=== PATIENT | male | born 1995 | race Caucasian/White ===

== ENCOUNTER 2020-07-01 10:26 | Emergency (ER) | payer OTHER, MEDICAID, SELFPAY ==
[2020-07-01 11:08] VITALS: BP 123/69; PULSE 86; RESP 16; TEMP 36.7; O2SAT 97; BMI 42.0
--- NOTE | 2020-07-01 11:16 | XR_ITS ---
EXAMINATION: XR HIP, LEFT CLINICAL INFORMATION: Pain. COMPARISON: None TECHNIQUE: Two views of the left hip and one view of the pelvis. FINDINGS: Bone alignment is normal. No fracture or dislocation is seen. The hip joints are normal. Bones of the pelvis are normal. There is a faint soft tissue calcification adjacent to the greater trochanter seen on the AP view. Soft tissues are otherwise unremarkable. IMPRESSION: No fracture or dislocation seen. Minimal soft tissue calcification adjacent to the greater trochanter.
--- NOTE | 2020-07-01 11:17 | ED_ITS ---
HPI - Extremity Injury (Lower) General Chief Complaint: Extremity Injury, Lower Stated Complaint: left hip inj,work related Time Seen by Provider: 07/01/20 11:14 Source: patient Mode of arrival: ambulatory Limitations: no limitations History of Present Illness HPI Narrative: 24yoM c PMHx of asthma presenting to the ED c c/o left hip pain s/p twist injury while at work at [employer]. Reports he was jumping on the wagon to scare people and when the wagon started to drive away he turned/twisted quickly and heard a crack sound and since then has been having left hip pain c a limp. Denies any other injuries complaints or concerns at this time. Related Data Previous Rx's Medication Instructions Recorded naproxen 500 mg PO BID PRN #10 tab 07/01/20 oxycodone-acetaminophen [Percocet] 1 tab PO Q6H PRN #10 tab 07/01/20 prednisone 40 mg PO DAILY 5 Days #10 tab 07/01/20 Allergies Allergy/AdvReac Type Severity Reaction Status Date / Time sulfamethoxazole Allergy Severe HIVES Unverified 05/30/20 17:09 [From BACTRIM] trimethoprim [From BACTRIM] Allergy Severe HIVES Unverified 05/30/20 17:09 Iodinated Contrast Media AdvReac Agitated Verified 07/01/20 11:07 Review of Systems Review of Systems: Constitutional : No Weight loss, No Fever, No Chills, No Night Sweats, No Fatigue, No Malaise ENT/Mouth : No Hearing loss, No Ear Pain, No Nasal Congestion, No Sinus Pain, No Hoarseness, No sore throat, No Rhinorrhea, No Swallowing Difficulty Eyes: No Eye Pain, No Swelling, No Redness, No Foreign Body, No Discharge, No Vision Changes Cardiovascular : No Chest Pain, No SOB, No Dyspnea on Exertion, No Orthopnea, No Edema, No Palpitations Respiratory : No Cough, No Sputum, No Wheezing, No Smoke Exposure, No Dyspnea Gastrointestinal : No Nausea, No Vomiting, No Diarrhea, No Constipation, No abdominal Pain, No Hematochezia, No Melena Genitourinary : no irregular bleeding, No Dysuria, No Urinary Frequency, No Hematuria, No Urinary Incontinence, No Urgency, No Flank Pain, No Urinary Flow Changes, No Hesitancy Musculoskeletal : No Myalgias, No Joint Swelling Skin : No Skin Lesions, No rash Neuro : No Weakness, No Numbness, No Paresthesias, No Loss of Consciousness, No Dizziness, No Headache Psych : No Anxiety/Panic, No Depression, No SI/HI/AH/VH, No Social Issues, Heme/Lymph: No Bruising, No Bleeding,No Lymphadenopathy Endocrine : No Polyuria, No Polydipsia, No Temperature Intolerance Yes all other systems are reviewed and are negative [facility] Past Medical History Attestation statement: The following information was validated with the patient. Medical History Asthma No known health problems Social History Social History (Reviewed 07/01/20 @ : by KARINA Ghosh) Smoking Status: Current every day smoker Use of substances other than those prescribed or required for medical reasons: No Advance Directives: No Advance Directives Information Provided: Yes Physical Exam Vital Signs: Vital Signs: Vital Signs Temp Pulse Resp BP Pulse Ox 07/01/20 11:08 98.0 F 86 16 123/69 97 Body Mass Index 42.0 vital signs have been reviewed as normal and appeared to be correct. Blood pressure normal. Heart rate normal. Respiration rate normal. Temperature normal. Oxygen saturation normal. Appearance: Alert. Oriented X3. No acute distress. Head: Normal external exam. Normocephalic. Atraumatic. No Cho signs noted. No raccoon eyes noted Eyes: PERRLA. EOMI. Conjunctiva and sclera normal. Eyelids normal. ENT: EAC normal. TM's Normal. Pharynx normal. Uvula midline. Moist mucous membranes. No trismus noted. No drooling noted. No muffled voice noted. Neck: Normal inspection. Neck supple. FROM. No adenopathy. Thyroid Normal. No meningeal signs. No neck mass noted. CVS: Normal heart rate and rhythm. Heart sound normal. No murmurs noted. Pulses normal throughout. Respiratory: No respiratory distress. Painless inspiration. Breath sounds normal. No wheezes/rales/rhonchi noted. Chest nontender. No accessory muscle usage noted or decreased air movement noted. Abdomen: Soft and nontender. Bowel sounds normal in all 4 quadrants. No distention noted. No organomegaly noted. No visible injury noted. Back: No CVA tenderness. Full range of motion noted. Skin: Skin warm and dry. Normal skin color. Normal skin turgor. No rashes/lesions/lacerations noted. Extremities: No lower extremity edema. Extremities exhibit normal range of motion. left hip c ttp on the lateral aspect. No medial tenderness. No obvious deformitis. Pt has a slight limp c left leg due to pain. No rashes/lesion/induration/fluctuance/ecchymosis/abrasions/lacerations or signs i nfection noted. Neuro: Oriented X 3. No motor deficit. No sensory deficit. Reflexes normal. Course Course Course Narrative: 24yoM c PMHx of asthma presenting to the ED c c/o left hip pain s/p twist injury while at work at [employer]. Reports he was jumping on the wagon to scare people and when the wagon started to drive away he turned/twisted quickly and heard a crack sound and since then has been having left hip pain c a limp. - Plan: Xray of left hip then Re-evaluate Reevaluation(s) Reevaluation #1: will DC home with symptomatic treatment along with instructions return if any new or worsening symptoms to follow-up with primary care provider. Patient understands agrees the plan. MDM - Extremity Injury (Lower) Medical Records Attestation: I reviewed the patient's medical records. Imaging Data left hip xray: Attestation: I personally reviewed and interpreted this imaging study as follows: Radiologist's impression: FINDINGS: Bone alignment is normal. No fracture or dislocation is seen. The hip joints are normal. Bones of the pelvis are normal. There is a faint soft tissue calcification adjacent to the greater trochanter seen on the AP view. Soft tissues are otherwise unremarkable. IMPRESSION: No fracture or dislocation seen. Minimal soft tissue calcification adjacent to the greater trochanter. Discharge Plan Discharge Clinical Impression: Tendon calcification Sprain of left hip Qualifiers: Encounter type: initial encounter Qualified Code(s): S73.102A - Unspecified sprain of left hip, initial encounter Patient Disposition: Home, Self-Care Instructions: Hip Sprain (ED), Calcific Tendinitis (ED) Additional Instructions: Follow-up with her primary care provider. Return if any new or worsening symptoms. Prescriptions: New naproxen 500 mg tablet 500 mg PO BID PRN (Reason: pain) Qty: 10 RF: 0 oxycodone-acetaminophen [Percocet] 5-325 mg tablet 1 tab PO Q6H PRN (Reason: pain) Qty: 10 RF: 0 prednisone 20 mg tablet 40 mg PO DAILY 5 Days Qty: 10 RF: 0 Print Language: Tajik
== END 2020-07-01 12:23 | disposition home or self-care (01) ==
PROVIDERS: Emergency Provider Emergency Medicine
DX: S73.102A Unspecified sprain of left hip, initial encounter (principal); M65.852 Other synovitis and tenosynovitis, left thigh; M25.552 Pain in left hip; X50.1XXA Overexertion from prolonged static or awkward postures, initial encounter; Y93.9 Activity, unspecified; Y92.79 Other farm location as the place of occurrence of the external cause; Y99.0 Civilian activity done for income or pay; F17.200 Nicotine dependence, unspecified, uncomplicated; Z71.6 Tobacco abuse counseling
CPT/HCPCS: 73502; 99283

== ENCOUNTER 2022-06-15 10:41 | Emergency (ER) | payer MEDICAID, SELFPAY ==
[2022-06-15 10:51] VITALS: BP 124/70; PULSE 73; RESP 16; TEMP 36.7; O2SAT 98; BMI 35.4
--- NOTE | 2022-06-15 11:04 | ED_ITS ---
HPI - Eye Problem General Chief complaint: Eye Problems Stated complaint: Rash/Eye redness Time Seen by Provider: 06/15/22 11:04 Source: patient Mode of arrival: ambulatory History of Present Illness HPI Narrative: 26-year-old male with past medical history of asthma presenting to the ED complaining of bilateral eye irritation, itching,& burning since . Also reports irritation to surrounding skin and forehead, states works on [employer] and unsure if mask he wears or bushes with ? poison heladio are causing symptoms. Denies wearing glasses or contacts. Reports foreign body sensation/tearing. Denies injury, vision loss, vision change, fever, rash, SOB, throat closing sensation, other new exposures MD chief complaint: eye pain and eye redness Onset (ago): day(s) Related Data Previous Rx's Medication Instructions Recorded naproxen 500 mg tablet 500 mg PO BID PRN pain #10 tabs 07/01/20 oxycodone-acetaminophen 5 mg-325 1 tab PO Q6H PRN pain #10 tabs 07/01/20 mg tablet (Percocet) prednisone 20 mg tablet 40 mg PO DAILY 5 days #10 tabs 07/01/20 cetirizine 10 mg capsule (Zyrtec) 10 mg PO DAILY #14 caps 06/15/22 diphenhydramine HCl 2 % topical 1 appl topical BID PRN skin 06/15/22 gel (Benadryl) irritation #103 mL diphenhydramine HCl 25 mg capsule 25 mg PO TID PRN allergy symptoms 06/15/22 (Benadryl) #10 caps olopatadine 0.2 % eye drops 1 drp ophthalmic (eye) DAILY 7 06/15/22 days #2.5 mL Allergies Allergy/AdvReac Type Severity Reaction Status Date / Time sulfamethoxazole Allergy Severe HIVES Unverified 05/30/20 17:09 [From BACTRIM] trimethoprim [From BACTRIM] Allergy Severe HIVES Unverified 05/30/20 17:09 Iodinated Contrast Media AdvReac Agitated Verified 07/01/20 11:07 Review of Systems Review of Systems: Constitutional: No Fever, No Chills, No Fatigue, No Malaise ENT/Mouth: No Ear Pain, No Nasal Congestion, No Hoarseness, No sore throat, No Rhinorrhea, No Swallowing Difficulty Eyes: + Eye Pain, No Swelling, No Redness, + Foreign Body Sensation, + Tearing, No Vision Changes Cardiovascular: No Chest Pain, No SOB, No Palpitations Respiratory: No Cough, No Sputum, No Dyspnea Gastrointestinal: No Nausea, No Vomiting, No Diarrhea, No Constipation, No Abdominal pain Genitourinary: No Dysuria, No Urinary Incontinence/retention, No Flank Pain Musculoskeletal: No joint pain, No Myalgias, No Joint Swelling Skin: No Skin Lesions, No rash Neuro: No Weakness, No Loss of Consciousness, No Dizziness, No Headache Yes all other systems are reviewed and are negative Constitutional: Constitutional: Reports as per [facility] Past Medical History Attestation statement: The following information was validated with the patient. Medical History Asthma No known health problems Social History Social History Advance Directives: No Advance Directives Information Provided: No Physical Exam Vital Signs: Vital Signs: Last Vital Signs Temp 98.1 F 06/15/22 10:51 Pulse 73 06/15/22 10:51 Resp 16 06/15/22 10:51 BP 124/70 06/15/22 10:51 Pulse Ox 98 06/15/22 10:51 O2 Del Method 06/15/22 10:51 BMI result Body Mass Index 35.4 Const: General: cooperative, healthy appearing and no acute distress Orientation/consciousness: patient oriented x3 Limitations: no limitations HEENT: Head: Yes normal to inspection and Yes atraumatic Ears: hearing grossly normal bilaterally General nose exam: Normal external nose present Face and sinus: Yes normal facial exam Eyes: Other: Lower forehead & left infraorbital area w/ skin irritation with erythema/papules. Fluorescein used bilaterally without uptake, no appreciable ulcerations General: appearance normal, both eyes and all related structures Periorbital: periorbital findings abnormal left Eyelids: Yes eyelids normal Conjunctivae: conjunctivae normal Sclerae: sclerae normal Corneas: corneas normal and fluorescein used Pupils: Equal, round and reactive pupils present EOM: EOMs intact bilaterally Direct Ophthalmoscopy: normal light reflex and no photophobia Neck: Neck: Yes normal visual inspection and Yes no meningeal signs Resp: Effort & Inspection: normal respiratory effort, no grunting, not labored, no respiratory distress and no stridor Cardio: Rate: regular rate Heart sounds: S1 normal heart sound present and S2 normal heart sound present Skin: Rashes: no rashes Wounds: no wounds Neuro: General: patient oriented x3, tone normal and no meningeal signs Cranial nerves: Yes Equal, round and reactive pupils present Gait exam (Neuro): Normal gait present Extrem: General: Yes normal to inspection MDM - Eye Problem MDM Narrative Medical decision making narrative: 26-year-old male with past medical history of asthma presenting to the ED complaining of bilateral eye irritation, itching,& burning since . On exam vital signs stable, NAD, nontoxic appearing, physical exam as above with noted skin irritation vs ? Allergic reaction. No evidence of anaphylaxis. No fluorescein uptake. No evidence of periorbital/orbital cellulitis. Concern for allergic conjunctivitis Plan: Treat allergic conjunctivitis and allergic reaction/contact dermatitis Medical Records Attestation: I reviewed the patient's medical records. Lab Data Attestation: I reviewed the patient's lab results. Discharge Plan Discharge Clinical Impression: Acute allergic conjunctivitis, Allergic reaction Patient Disposition: Home, Self-Care Instructions: General Allergic Reaction (ED), Conjunctivitis (ED), Allergy Testing (ED) Additional Instructions: Your likely having an allergic reaction. Olopatadine drops will help with eye irritation In addition take Zyrtec and Benadryl, Benadryl make you drowsy, do not drive, operate machinery, or drink alcohol while taking Additionally topical Benadryl cream can be applied to skin irritation, do not put this in your eyes. Follow-up with primary care doctor, & allergy testing as needed If symptoms persist or worsen, you develops vision loss please return to emergency department Prescriptions: New olopatadine 0.2 % drops 1 drp ophthalmic (eye) DAILY 7 Days Qty: 2.5 0RF diphenhydramine HCl [Benadryl] 25 mg capsule 25 mg PO TID PRN (Reason: allergy symptoms) Qty: 10 0RF Zyrtec 10 mg capsule 10 mg PO DAILY Qty: 14 0RF Benadryl 2 % gel 1 appl topical BID PRN (Reason: skin irritation) Qty: 103 0RF No Action naproxen 500 mg tablet 500 mg PO BID PRN (Reason: pain) Qty: 10 0RF oxycodone-acetaminophen [Percocet] 5-325 mg tablet 1 tab PO Q6H PRN (Reason: pain) Qty: 10 0RF prednisone 20 mg tablet 40 mg PO DAILY 5 Days Qty: 10 0RF Referrals: Michael Howard MD [Physician] - Physician,None [Primary Care Provider] -
[2022-06-15] MEDS: Fluorescein Sodium STRIP 1 STRIP EYE-BOTH (11:23)
[2022-06-15] MEDS: Tetracaine HCl/PF 0.5% Oph Sol 4 ML DROPS 3 DROP EYE-BOTH (11:24)
[2022-06-15] MEDS: Loratadine 10 MG TABLET PO (11:43)
[2022-06-15] MEDS: Famotidine 20 MG TABLET PO (11:43)
== END 2022-06-15 11:48 | disposition home or self-care (01) ==
PROVIDERS: Emergency Provider Emergency Medicine
DX: H10.13 Acute atopic conjunctivitis, bilateral (principal); T78.40XA Allergy, unspecified, initial encounter; X58.XXXA Exposure to other specified factors, initial encounter
CPT/HCPCS: 99282; 99283

== ENCOUNTER 2023-02-23 18:41 | Emergency (ER) | payer OTHER, SELFPAY ==
--- NOTE | ~2023-02-23 | CT_ITS ---
EXAMINATION: CT ABDOMEN AND PELVIS WITHOUT CONTRAST CLINICAL INFORMATION: Abdominal and rectal bleeding COMPARISON: None available. TECHNIQUE: Multidetector volumetric imaging was performed from the superior aspect of the liver through the pubic symphysis. Sagittal and coronal reformatted images were obtained on the technologist's workstation. This CT examination was performed using dose optimization techniques as appropriate, variously including the following: *Automated exposure control *Adjustment of mA and/or kV according to patient size (this includes techniques or standardized protocols for targeted exams where dose is matched to indication/reason for exam; i.e. extremities or head) *Use of iterative reconstruction technique DLP: 839 mGy-cm FINDINGS: LUNG BASES: The visualized lung bases are unremarkable. LIVER, GALLBLADDER, AND BILIARY TREE: The liver is normal in size, shape, and attenuation. No focal hepatic lesion or biliary ductal dilatation is present. The gallbladder is unremarkable with no evidence of radiopaque gallstones, gallbladder wall thickening, or obvious pericholecystic inflammatory changes. PANCREAS: Unremarkable. SPLEEN: Spleen is mildly enlarged at 13.4 cm. ADRENAL GLANDS: Unremarkable. KIDNEYS AND URETERS: The kidneys are normal in size, shape, and attenuation. There is some minimal fullness of the left collecting system compared with the right but there is no hydronephrosis, hydroureter, or calculi seen. No perinephric stranding. BLADDER: Unremarkable. GASTROINTESTINAL TRACT: The small and large bowel are unremarkable. The appendix is not seen with certainty but there is no evidence of appendicitis appendicitis. ABDOMINAL WALL: No significant hernia is appreciated. Tiny right inguinal hernia contains only fat. Tiny periumbilical hernia contains only fat. LYMPH NODES: No retroperitoneal lymphadenopathy. VASCULAR: Unremarkable. PELVIC VISCERA: The prostate is mildly enlarged seminal vesicles are unremarkable. OSSEOUS STRUCTURES: Unremarkable. CT/CT abdomen pelvis wo IV con IMPRESSION: 1. A cause for the patient's rectal bleeding and rectal bleeding has not been found. 2. Incidental note made of mild splenomegaly and mild BPH. Fleischner guidelines were followed.
--- NOTE | 2023-02-23 19:25 | ECG_ITS ---
Test Reason : SHORTNESS OF BREATHING Blood Pressure : / mmHG Vent. Rate : 085 BPM Atrial Rate : 085 BPM P-R Int : 176 ms QRS Dur : 106 ms QT Int : 344 ms P-R-T Axes : 030 020 009 degrees QTc Int : 409 ms Normal sinus rhythm RSR' or QR pattern in V1 suggests right ventricular conduction delay No previous ECGs available Referred By: Gely Loyola Electronically Signed By:ALEXANDER CHÁVEZ MD
--- NOTE | 2023-02-23 19:25 | ED_ITS ---
HPI - General Adult General Chief complaint: General Medical Stated complaint: stomach pain, bloody stool, vomiting Time Seen by Provider: 02/23/23 22:22 Source: patient and family Mode of arrival: ambulatory Limitations: no limitations History of Present Illness HPI narrative: 27-year-old male came in for evaluation of bright red blood per rectum, patient been having few months with intermittent bright red blood per rectum, worsening today had bloody bowel movement with bright red blood patient passed out after the bowel movement, no head injury, no nausea, vomiting, not taking anticoagulation therapy, patient has a history of occasional alcohol use. Patient also has asthmatic complaining of wheezing. Related Data Previous Rx's Medication Instructions Recorded cetirizine 10 mg capsule (Zyrtec) 10 mg PO DAILY #14 caps 06/15/22 diphenhydramine HCl 2 % topical 1 appl topical BID PRN skin 06/15/22 gel (Benadryl) irritation #103 mL diphenhydramine HCl 25 mg capsule 25 mg PO TID PRN allergy symptoms 06/15/22 (Benadryl) #10 caps albuterol sulfate 90 mcg/actuation 2 puff inhalation Q4-6H PRN 12/03/22 aerosol inhaler shortness of breath or wheezing #8.5 grams albuterol sulfate 90 mcg/actuation 2 puff inhalation Q4-6H PRN 12/04/22 aerosol inhaler (Ventolin HFA) shortness of breath or wheezing #8.5 grams Allergies Allergy/AdvReac Type Severity Reaction Status Date / Time sulfamethoxazole Allergy Severe HIVES Verified 02/23/23 23:11 [From BACTRIM] trimethoprim [From BACTRIM] Allergy Severe HIVES Verified 02/23/23 23:11 Iodinated Contrast Media AdvReac Agitated Verified 02/23/23 23:11 Review of Systems Review of Systems: All other systems are reviewed and are negative Constitutional: Reports as per HPI and Reports no additional constitutional complaints Eyes: Reports as per HPI and Reports no additional eye complaints Reports system reviewed and no additional complaints, except as documented Cardiovascular: Reports as per HPI and Reports no additional cardiovascular co mplaints Respiratory: Reports as per HPI and Reports no additional respiratory complaints Gastrointestinal: Reports as per HPI and Reports no additional gastrointestinal complaints Genitourinary: Reports no additional female genitourinary complaints Musculoskeletal: Reports no additional musculoskeletal complaints Skin/Breast: Reports system reviewed and no additional complaints, except as docu Psychiatric: Reports no additional psychiatric complaints Endocrine: Reports no additional endocrine complaints Hematologic/Lymphatic: Reports no additional hematologic/lymphatic complaints Allergic/Immunologic: Reports no additional allergic/immunologic complaints Reports system reviewed and no additional complaints, except as documented and Reports Abnormal speech present [facility] Past Medical History Medical History Asthma No known health problems Family History Family History Mother Diabetes Obstructive sleep apnea Bipolar 1 disorder Depressed Maternal Grandmother Obstructive sleep apnea Hypertension Maternal Uncle Hypertension Cardiovascular disease Social History Social History Patient Tobacco Use Status: Never used Tobacco e-Cigarette/Vaping Use: Never Used Advance Directives: No Advance Directives Information Provided: No Current occupational status: employed Physical Exam ED Vital Signs: Vital Signs - 24 hr 02/23/23 19:30 02/23/23 22:00 02/24/23 00:09 Temperature 98.2 F 99.0 F 99.3 F Pulse Rate 92 87 91 Respiratory Rate 16 16 18 Blood Pressure 148/65 H 137/72 131/59 L Pulse Oximetry 97 96 99 Oxygen Delivery Method Room Air Room Air Room Air BMI result Body Mass Index 38.0 Vital signs have been reviewed as appeared to be correct. Blood pressure normal. Heart rate normal. Respiration rate normal. Temperature normal. Oxygen saturation normal. Appearance: Alert. Oriented X3. No acute distress. Head: Normal external exam. Normocephalic. Atraumatic. No Cho signs noted. No raccoon eyes noted Eyes: PERRLA. EOMI. Conjunctiva and sclera normal. Eyelids normal. ENT: TM's Normal. Pharynx normal. Uvula midline. Moist mucous membranes. No trismus noted. No drooling noted. No muffled voice noted. Neck: Normal inspection. Neck supple. FROM. No adenopathy. Thyroid Normal. No meningeal signs. No neck mass noted. CVS: Normal heart rate and rhythm. Heart sound normal. No murmurs noted. Pulses normal throughout. Respiratory: No respiratory distress. Painless inspiration. Breath sounds normal. No wheezes/rales/rhonchi noted. Chest nontender. No accessory muscle usage noted or decreased air movement noted. Abdomen: Soft, mild epigastric tenderness, no guarding, no rebound tenderness. Bowel sounds normal in all 4 quadrants. No distention noted. No organomegaly noted. No visible injury noted. Rectal exam: No external or internal hemorrhoid inspected or palpated. Bright red blood with the stool guaiac positive. Back: No CVA tenderness. Full range of motion noted. Skin: Skin warm and dry. Normal skin color. Normal skin turgor. No rashes/lesions/lacerations noted. Extremities: No lower extremity edema. Extremities exhibit normal range of motion. Extremities nontender. Neuro: Oriented X 3. Cranial nerve exam: II-XII are grossly intact No motor deficit. No sensory deficit. Reflexes normal. Course Course Course Narrative: RME: 27yo M w/PMHx asthma c/o brbpr x mos worsening today with syncopal episode while in the bathroom. +LOC, denies head trauma or taking AC. Also reports epigastric abdominal pain and N/V. Admits to some rectal pain with BMs EKG, Labs, UA, Occult stool, orthostatics ordered Full HPI, ROS and PE to be performed by primary ED provider. Reevaluation(s) Reevaluation #1: 27-year-old male came in for evaluation of bright red blood per rectum, hemodynamically stable, stable H&H, VSS, CT abdomen and pelvis is revealing no acute pathology. Guaiac positive, patient declined admission and would like to be discharged home (patient has to take care and baby sit his children) will follow with gastroenterology as an outpatient. Time: 01:01 Medications Administered Discontinued Medications Generic Name Dose Route Start Last Admin Trade Name Sonnyq PRN Reason Stop Dose Admin Al Hydroxide/Mg Hydroxide 30 ml 02/23/23 23:02 02/23/23 23:11 Magnesium Hydrox/Alum Hydrox 30 Ml Oral.Susp PO 02/23/23 23:03 30 ml ONCE ONE Administration Albuterol Sulfate 4 puff 02/23/23 20:35 02/23/23 22:27 Albuterol Sulfate 90 Mcg 8 Gm Inhaler INHALE 02/23/23 20:36 4 puff ONCE ONE Administration Sodium Chloride 1,000 mls @ 999 mls/hr 02/23/23 23:02 02/24/23 00:19 Ns IV 02/24/23 00:02 Infused .Q1H1M ONE Infusion Pantoprazole Sodium 40 mg 02/23/23 23:02 02/23/23 23:19 Pantoprazole Sodium 40 Mg/10 Ml Vial IVPUSH 02/23/23 23:03 40 mg ONCE ONE Administration Medical Decision Making Differential Diagnosis Differential Diagnoses: The differential diagnosis associated with the presentation includes (Electrolyte abnormalities, anemia, hemodynamic instability, colitis, diverticular disease.) Admission/Observation Consideration of admission/observation: Escalation of care including admission/observation considered Lab Data MDM Lab Attestation statement: I reviewed the patient's lab results. 02/23/23 20:28 02/23/23 20:28 Labs: Lab Results 02/23/23 02/23/23 02/23/23 Range/Units 20:28 20:28 20:28 WBC 14.7 H (4.8-10.8) X10*3/uL RBC 5.31 (4.60-5.80) X10*6/uL Hgb 16.0 (14.0-18.0) g/dl Hct 47.7 (42.0-52.0) % MCV 89.8 (80.0-98.0) fL MCH 30.1 (27.0-33.0) pg MCHC 33.5 (31.0-36.0) g/dl RDW 12.8 (11.0-16.0) % Plt Count 195 (160-400) X10*3/uL MPV 11.2 (9.4-12.4) fL Immature Gran % (Auto) 0.5 H (0.0-0.4) % Neut % (Auto) 83.5 H (45-73) % Lymph % (Auto) 8.4 L (20-40) % [place] % (Auto) 7.1 (2-11) % Eos % (Auto) 0.1 (0-4) % Baso % (Auto) 0.4 (0-2) % Lymph # (Auto) 1.2 (1.2-4.9) X10*3/uL [place] # (Auto) 1.0 (0.1-1.2) X10*3/uL Eos # (Auto) 0.0 (0.0-0.4) X10*3/uL Baso # (Auto) 0.1 (0.0-0.2) X10*3/uL Abs Immat Gran (auto) 0.08 H (0.00-0.03) X10*3/uL Absolute Neuts (auto) 12.3 H (2.0-8.3) x10*3/uL Absolute Nucleated RBC 0.000 (0.0-0.012) X10*3/uL Nucleated RBC % (auto) 0.0 (0.0-0.2) /100WBC PT 11.4 (10.0-13.1) SEC INR 1.0 (0.9-1.1) Sodium 139 (135-145) mmol/L Potassium 4.0 (3.3-5.1) mmol/L Chloride 104 (96-108) mmol/L Carbon Dioxide 24 (22-29) mmol/L Anion Gap 15 (12-20) BUN 12 (9-16) mg/dL Creatinine 0.85 (0.5-1.4) mg/dL Estim Creat Clear Calc 158.1 Estimated GFR > 60 Random Glucose 90 (60-115) mg/dL Calcium 9.8 (8.4-10.2) mg/dL Magnesium 1.8 (1.6-2.6) mg/dL Total Bilirubin 1.2 H (0.0-1.0) mg/dL Direct Bilirubin 0.2 (0.0-0.5) mg/dL AST 25 (5-37) U/L ALT 47 H (0-40) U/L Alkaline Phosphatase 74 (39-117) U/L Troponin I High Sens (<3.5-35.0) ng/L Total Protein 8.3 H (6.5-8.0) g/dL Albumin 4.6 (3.5-5.0) g/dL Lipase 13 (8-78) U/L Stool Occult Blood (NEGATIVE) 02/23/23 02/23/23 Range/Units 20:28 22:31 WBC (4.8-10.8) X10*3/uL RBC (4.60-5.80) X10*6/uL Hgb (14.0-18.0) g/dl Hct (42.0-52.0) % MCV (80.0-98.0) fL MCH (27.0-33.0) pg MCHC (31.0-36.0) g/dl RDW (11.0-16.0) % Plt Count (160-400) X10*3/uL MPV (9.4-12.4) fL Immature Gran % (Auto) (0.0-0.4) % Neut % (Auto) (45-73) % Lymph % (Auto) (20-40) % [place] % (Auto) (2-11) % Eos % (Auto) (0-4) % Baso % (Auto) (0-2) % Lymph # (Auto) (1.2-4.9) X10*3/uL [place] # (Auto) (0.1-1.2) X10*3/uL Eos # (Auto) (0.0-0.4) X10*3/uL Baso # (Auto) (0.0-0.2) X10*3/uL Abs Immat Gran (auto) (0.00-0.03) X10*3/uL Absolute Neuts (auto) (2.0-8.3) x10*3/uL Absolute Nucleated RBC (0.0-0.012) X10*3/uL Nucleated RBC % (auto) (0.0-0.2) /100WBC PT (10.0-13.1) SEC INR (0.9-1.1) Sodium (135-145) mmol/L Potassium (3.3-5.1) mmol/L Chloride (96-108) mmol/L Carbon Dioxide (22-29) mmol/L Anion Gap (12-20) BUN (9-16) mg/dL Creatinine (0.5-1.4) mg/dL Estim Creat Clear Calc Estimated GFR Random Glucose (60-115) mg/dL Calcium (8.4-10.2) mg/dL Magnesium (1.6-2.6) mg/dL Total Bilirubin (0.0-1.0) mg/dL Direct Bilirubin (0.0-0.5) mg/dL AST (5-37) U/L ALT (0-40) U/L Alkaline Phosphatase (39-117) U/L Troponin I High Sens < 2.7 (<3.5-35.0) ng/L Total Protein (6.5-8.0) g/dL Albumin (3.5-5.0) g/dL Lipase (8-78) U/L Stool Occult Blood POSITIVE (NEGATIVE) Independent Interpretation I performed an independent interpretation of an: CT Scan (Abdomen and pelvis: No acute intra-abdominal pathology) Radiology Impression Discussion of test interpretation with radiology: I have reviewed the radiologist's reading. Discharge Plan Discharge Clinical Impression: Bright red rectal bleeding Patient Disposition: Home, Self-Care Instructions: Rectal Bleeding (ED) Additional Instructions: Return to the emergency department if any rectal bleeding, abdominal pain, nausea or vomiting. Seek immediate medical attention if having chest pain, shortness of breath. Prescriptions: No Action albuterol sulfate 90 mcg/actuation HFA aerosol inhaler 2 puff inhalation Q4-6H PRN (Reason: shortness of breath or wheezing) Qty: 8.5 4RF albuterol sulfate [Ventolin HFA] 90 mcg/actuation HFA aerosol inhaler 2 puff inhalation Q4-6H PRN (Reason: shortness of breath or wheezing) Qty: 8.5 0RF diphenhydramine HCl [Benadryl] 25 mg capsule 25 mg PO TID PRN (Reason: allergy symptoms) Qty: 10 0RF Zyrtec 10 mg capsule 10 mg PO DAILY Qty: 14 0RF Benadryl 2 % gel 1 appl topical BID PRN (Reason: skin irritation) Qty: 103 0RF Referrals: Shay Wheat MD [Physician] -
[2023-02-23 19:30] VITALS: BP 148/65; PULSE 92; RESP 16; TEMP 36.8; O2SAT 97; BMI 38.0
[2023-02-23 20:51] LABS: MANUAL DIFF FLAG NO
[2023-02-23 20:54] LABS: Basophils Absolute Auto 0.1 X10*3/uL (0.0-0.2); Basophils Percent Auto 0.4 % (0-2); Eosinophils Percent Auto 0.1 % (0-4); Hematocrit 47.7 % (42.0-52.0); Imm Gran Abs Auto 0.08 X10*3/uL (0.00-0.03); Imm Gran Pct Auto 0.5 % (0.0-0.4); Lymphocytes Absolute Auto 1.2 X10*3/uL (1.2-4.9); Lymphocytes Percent Auto 8.4 % (20-40); Mean Corpuscular HGB Conc 33.5 g/dl (31.0-36.0); Mean Corpuscular Hemoglobin 30.1 pg (27.0-33.0); Mean Corpuscular Volume 89.8 fL (80.0-98.0); Mean Platelet Volume 11.2 fL (9.4-12.4); Monocytes Percent Auto 7.1 % (2-11); Neutrophils Absolute Auto 12.3 x10*3/uL (2.0-8.3); Neutrophils Percent Auto 83.5 % (45-73); Platelet Count 195 X10*3/uL (160-400); Red Blood Count 5.31 X10*6/uL (4.60-5.80); Red Cell Distribution Width 12.8 % (11.0-16.0); White Blood Count 14.7 X10*3/uL (4.8-10.8)
[2023-02-23 21:02] LABS: Prothrombin Time 11.4 SEC (10.0-13.1)
[2023-02-23 21:14] LABS: Alanine Aminotransferase 47 U/L (0-40); Albumin Level 4.6 g/dL (3.5-5.0); Alkaline Phosphatase 74 U/L (39-117); Anion Gap 15 (12-20); Aspartate Amino Transferase 25 U/L (5-37); Bilirubin Direct 0.2 mg/dL (0.0-0.5); Bilirubin Total 1.2 mg/dL (0.0-1.0); Blood Urea Nitrogen 12 mg/dL (9-16); Calcium 9.8 mg/dL (8.4-10.2); Carbon Dioxide 24 mmol/L (22-29); Chloride 104 mmol/L (96-108); Creatinine Clr Calc Pharmacy 158.1; Estimated Glomerular Filt Rate > 60; Glucose Random 90 mg/dL (60-115); Lipase 13 U/L (8-78); Magnesium 1.8 mg/dL (1.6-2.6); Sodium 139 mmol/L (135-145); Total Protein 8.3 g/dL (6.5-8.0)
[2023-02-23 21:23] LABS: Troponin-I High Sensitivity < 2.7 ng/L (<3.5-35.0)
[2023-02-23 22:00] VITALS: BP 137/72; PULSE 87; RESP 16; TEMP 37.2; O2SAT 96
[2023-02-23] MEDS: Albuterol Sulfate 90 MCG 8 GM INHALER 4 PUFF INHALE (22:27)
--- NOTE | 2023-02-23 22:30 | PC.NURSE ---
rectal exam performed per Dr. Martinez.
[2023-02-23 22:38] LABS: OBS Int Ctl Valid YES; OBS1 POSITIVE (NEGATIVE)
--- OUTSIDE RECORDS SUMMARY | 2023-02-23 22:40 | XMS_ITS | Continuity of Care Document ---
Author Name Unknown Organization [facility] Address [address] [place] [address]- Care Team Providers Care Smoking Tobacco Packing Machine Hand Name Role Phone Not on Staff, PCP Primary Care Physician Unavail able Encounter [facility] Date(s): 06/15/22 - 07/15/22 [facility] [address] [place], [place] [address] Attending Physician: Darren Cespedes DO Referring Physician: Not on Staff, Referring MD Allergies, Adverse Reactions, Alerts Substance Reaction Severity Status Bactrim Active Contrast Dye Rash, pruritis Active Immunizations Given and Recorded Vaccine Date Status Refusal Reason tetanus/diphtheria/pertussis, acel(Tdap) 12/08/08 Given Medications ibuprofen 600 mg oral tablet 1 tablet = 600 mg, By Mouth, 4 times a day, PRN Pain, # 40 tablet, 0 Refills Start Date: 09/22/09 Stop Date: 10/06/09 Status: Ordered topiramate 50 mg oral tablet 1 tablet = 50 mg, By Mouth, 2 times a day, # 60 tablet, 5 Refills Start Date: 03/07/09 Stop Date: 04/06/09 Status: Ordered Zofran 4 mg oral tablet 1 tablet = 4 mg, By Mouth, 3 times a day, PRN as needed for nausea/vomiting, # 3 Doses, 0 Refills Start Date: 09/22/09 Stop Date: 10/22/09 Status: Ordered Problem List Condition Confirmation Course Effective Dates Status Health St atus Informant Chiari malformation type I Confirmed Active Migraine without aura Confirmed Active Patient Care team information Personnel Name: Not on Staff, PCP
--- OUTSIDE RECORDS SUMMARY | 2023-02-23 22:40 | XMS_ITS | Continuity of Care Document ---
Author Name Unknown Organization [facility] Address [address] [place] [address]- Care Team Providers Care Landcare Officer Name Role Phone Not on Staff, PCP Primary Care Physician Unavail able Encounter [facility] Date(s): 08/21/19 - 08/28/19 [facility] [address] [place] [address]- [facility] Encounter Diagnosis Pruritic rash(Discharge Diagnosis) - 08/21/19 Attending Physician: Nickolas PARKINSON, Ayaz Otto Allergies, Adverse Reactions, Alerts Substance Reaction Severity Status Bactrim Active Contrast Dye Rash, pruritis Active Immunizations Given and Recorded Vaccine Date Status Refusal Reason tetanus/diphtheria/pertussis, acel(Tdap) 12/08/08 Given Medications Diphenhist 25 mg oral tablet 1 tablet = 25 mg, By Mouth, 3 times a day, PRN as needed for itching, # 30 tablet, 0 Refills, Acute09/02/19 12:27:00 EST, 08/21/19 12:27:36 EST, Tablet, 175, cm, 08/21/19 12:11:21 EST, Height, 117.4, kg, 08/21/19 12:11:21 EST, Dry Weight Start Date: 08/21/19 Stop Date: 09/02/19 Status: Ordered ibuprofen 600 mg oral tablet 1 tablet [...] Date: 10/22/09 Status: Ordered Problem List Condition Effective Dates Status Health Status Inform ant Chiari malformation type I(Confirmed) Active Migraine without aura(Confirmed) Active Diagnosis Diagnosis Type Effective Dates Health Status Cl inical Service Informant Pruritic rash Discharge Diagnosis 08/21/19 Vital Signs Most recent to oldest [Reference Range]: 1 Height 175 cm (08/21/19 12:11 PM) Weight 117.4 kg (08/21/19 12:11 PM) Oxygen Saturation [94-100 %] 99 % (08/21/19 12:11 PM) Pulse Rate [55-90 bpm] 88 bpm (08/21/19 12:11 PM) Body Mass Index [18.5-24.99] 38.33 *>HHI* (08/21/19 12:11 PM) Blood Pressure [90-138/55-84 mm Hg] 127/ 64mm Hg (08/21/19 12:11 PM) Respiratory Rate [16-30 br/min] 20 br/mi n (08/21/19 12:11 PM) Temperature [96.8-100.4 DegF] 97.6 DegF (08/21/19 12:11 PM) Mode of Delivery (Oxygen) Room air (08/21/19 12:11 PM) Blood pressure sites Arm, left (08/21/19 12:11 PM) Temperature Route Oral (08/21/19 12:11 PM) Dry Weight 117.4 kg (08/21/19 12:11 PM) Weight Obtained Via Standing scale (08/21/19 12:11 PM) Dry Weight Obtained Via Standing scale (08/21/19 12:11 PM)
--- OUTSIDE RECORDS SUMMARY | 2023-02-23 22:40 | XMS_ITS | Continuity of Care Document ---
Author Name Unknown Organization [facility] Address [address] [place] [address]- Care Team Providers Care Cooler Operator Name Role Phone Not on Staff, PCP Primary Care Physician Unavail able Encounter [facility] Date(s): 06/15/22 - 07/15/22 [facility] [address] [place], [place] [address] Attending Physician: Jessenia Herrera Admitting Physician: Jessenia Herrera Referring Physician: Jessenia Herrera Allergies, Adverse Reactions, Alerts Substance Reaction Severity [...]
--- OUTSIDE RECORDS SUMMARY | 2023-02-23 22:40 | XMS_ITS | Continuity of Care Document ---
Author Name Unknown Organization [facility] Address [address] [place] [address]- Care Team Providers Care Blunger Name Role Phone Not on Staff, PCP Primary Care Physician Unavail able Encounter [facility] Date(s): 08/21/19 - 08/31/19 [facility] [address] [place] [address]- [facility] Attending Physician: Jessenia Herrera Admitting Physician: Jessenia Herrera Referring Physician: AdmtrJessenia Allergies, Adverse Reactions, Alerts Substance Reaction Severity [...]
[2023-02-23] MEDS: Magnesium Hydrox/Alum Hydrox 30 ML ORAL.SUSP PO (23:11)
[2023-02-23] MEDS: 0.9 % Sodium Chloride 1,000 ML 999 ML IV (23:18)
[2023-02-23] MEDS: Pantoprazole Sodium 40 MG/10 ML VIAL IVPUSH (23:19)
[2023-02-24 00:09] VITALS: BP 131/59; PULSE 91; RESP 18; TEMP 37.4; O2SAT 99
== END 2023-02-24 01:19 | disposition home or self-care (01) ==
PROVIDERS: Physician Assistant; Emergency Provider Emergency Medicine; PCP Nurse Practitioner Family
DX: K62.5 Hemorrhage of anus and rectum (principal); R06.02 Shortness of breath; R10.13 Epigastric pain; Z79.899 Other long term (current) drug therapy
CPT/HCPCS: 36415; 74176; 80048; 80076; 82272; 83690; 83735; 84484; 85025; 85610; 93005; 96361; 96374; 99285

== ENCOUNTER 2023-05-06 10:41 | Outpatient (AMB) | payer OTHER, SELFPAY ==
--- NOTE | 2023-05-06 10:58 | A.OFFPC_ITS ---
Vital Signs 05/06/23 10:59 Height 5 ft 8 in Weight 243 lb 4 oz BMI 37.0 BP 130/78 Blood Pressure Location Lt brachial Position Sitting Respiration 12 Pulse 74 Pulse Source Pulse Oximeter Temp 97.8 F Temp Source Oral Pulse Oximetry (%) 98 Oxygen Delivery Method Room Air Intake Visit Reasons: Physical exam Intake Note: Patient is here for physical, and is complaining of right kneepain and a bump gets big and hard after walking a lot. He states it started last June, comes and goes, but has gotten worse since February. He also complains of right shoulder pain. Allergies sulfamethoxazole [From BACTRIM] Allergy (Severe, Verified 05/06/23 11:46) HIVES Iodinated Contrast Media Adverse Reaction (Verified 05/06/23 11:46) Agitated Medication List - Last Reconciled 05/06/23 by Christine Nieto CNP albuterol sulfate 90 mcg/actuation (Ventolin HFA) 2 puffs inhalation Q4-6H PRN Tobacco use date assessed: 05/06/23 Dental Screening Dental Screen Date: 05/06/23 Did you have a dental visit in the last 12 months?: No Did you have a dental problem in the last 6 months where you did not have access to dental care?: No Was dental information given to patient?: Patient declined HPI HPI Comments History of Present Illness Details 27-year-old male presents for complete physical exam. He has history of asthma. He is on Ventolin which he notes he has been using as prescribed. He reports intermittent right shoulder and right lateral knee pain for the past few months. He notes that the knee pain intensifies with prolonged walking. He is not taking any medication for pain. No acute symptoms today. [facility] Medical History Asthma No known health problems Surgical History No pertinent past surgical history Family History Mother Diabetes Obstructive sleep apnea Bipolar 1 disorder Depressed Maternal Grandmother Obstructive sleep apnea Hypertension Maternal Uncle Hypertension Cardiovascular disease Social History Housing: Apartment Patient Tobacco Use Status: Former Tobacco user Cigarettes Per Day: 20 Years Smoked: 16 e-Cigarette/Vaping Use: Never Used service: No Current occupational status: unemployed Cognitive needs: No Hearing needs: Yes Vision needs: No Questionnaire Thrive Questionnaire Date Thrive assessed: 11/16/22 GABRIELA-7 AMB Questionnaire GABRIELA-7 Date GABRIELA - 7 assessed: 11/16/22 Source: Developed by Drs. Harshil Glover, Thalia Barger, Jimbo Oconnor and colleagues, with an educational alexis from [employer]. ACT Questionnaire In the past 4 weeks, how much of the time did your asthma keep you from getting as much done at work, school or at home?: None of the time During the past 4 weeks, how often have you had shortness of breath?: More than once a day During the past 4 weeks, how often did your asthma symptoms wake you up at night or earlier than usual in the morning?: 2-3 nights a week During the past 4 weeks, how often have you had to use your rescue inhaler or nebulizer medication?: More than 3 times per day How would you rate your asthma control during the past 4 weeks?: Poorly controlled ACT Interpretation: Positive Score: 11 Review of Systems Const Details: Denies chills, Denies fatigue, Denies fever(s), Denies headache(s) and Denies weakness HEENT Denies change in vision, Denies dizziness, Denies headache(s), Denies hearing loss, Denies nasal congestion, Denies sinus pain, Denies sinus pressure and Denies sore throat Card Denies chest pain, Denies lightheadedness, Denies dyspnea and Denies other (palpitations) Resp Denies cough, Denies dyspnea and Denies wheezing GI Denies abdominal pain, Denies melena, Denies hematochezia, Denies change in bowel habits, Denies dyspepsia and Denies nausea Denies hematuria and Denies dysuria Musc Denies abnormal gait, Denies myalgias, Denies arthralgias, Denies numbness and Denies tingling Skin/Breast Denies rash, Denies unusual bruising and Denies wounds Neuro Denies abnormal gait, Denies dizziness, Denies headache(s), Denies memory loss, Denies numbness, Denies Sensory deficit (Neuro), Denies tingling and Denies weakness Psych Denies anxiety, Denies depression and Denies memory loss Endo Denies cold intolerance, Denies fatigue, Denies heat intolerance, Denies polydipsia and Denies polyuria Joss/Lymph Denies easy bleeding and Denies easy bruising Aller/Immun Denies wheezing Physical exam (Primary Care) Vital Signs: Last Vital Signs Temp 97.8 F 05/06/23 10:59 Pulse 74 05/06/23 10:59 Resp 12 05/06/23 10:59 BP 130/78 05/06/23 10:59 Pulse Ox 98 05/06/23 10:59 Oxygen Delivery Method Room Air 05/06/23 10:59 BMI result Body Mass Index 37.0 Tobacco/Smoking Status: Tobacco use Status Tobacco use date assessed 05/06/23 05/06/23 11:12 Patient Tobacco Use Status Former Tobacco user 05/06/23 11:12 e-Cigarette/Vaping Use Never Used 05/06/23 11:12 Thrive Assessment: Date of Thrive Assessment Date Thrive assessed 11/16/22 05/06/23 11:12 Const Other: General: no acute distress, well developed, alert and awake Nutritional Appearance: well nourished Orientation/consciousness: patient oriented x3 HENMT Head: Yes normocephalic and Yes atraumatic Ears: hearing grossly normal bilaterally and TM's normal bilaterally General nose exam: Normal external nose present and Normal nares present Mouth: Normal oral and palatal mucosa present and moist mucous membranes Teeth and gingiva: dentition normal Throat: Yes oropharynx normal Eyes Pupils: Equal, round and reactive pupils present and Pupil accommodation reflex normal EOM: EOMs intact bilaterally Neck Neck: Yes normal visual inspection, Yes no lymphadenopathy and Yes trachea midline Thyroid: Thyroid normal Carotids: no bruits Lymphatic: no lymphadenopathy noted Chest Chest palpation & inspection: normal inspection of the chest Resp Effort & Inspection: normal respiratory effort Auscultation: clear to auscultation bilaterally Cardio Rate: regular rate Rhythm: regular rhythm Heart sounds: S1 normal heart sound present, S2 normal heart sound present, no gallops, no murmurs and no rubs Bruits: no abdominal aortic bruits and no carotid bruits GI Palpation (GI): No Abdominal aortic bruit present, Soft to palpation, nontender, No hepatosplenomegaly present and No Rebound tenderness present Auscultation: normal bowel sounds General: Yes no CVA tenderness Back/Spine/Pelvis Back: no CVA tenderness Cervical Spine: cervical ROM normal and No Cervical spine tenderness Thoracic/Lumbar Spine: thoraco-lumbar ROM normal, No pain with thoraco-lumbar ROM, No thoracic spinal tenderness and No lumbar spinal tenderness Skin General: warm and dry. Normal skin color. Normal skin turgor Lesions: no lesions Rashes: no rashes Trauma: no lacerations or abrasions Wounds: no wounds Nails: normal Neuro General: patient oriented x3, gait normal and CN's II-XI intact bilaterally Cranial nerves: Yes Equal, round and reactive pupils present Cognition (Neuro): normal cognition Gait exam (Neuro): Normal gait present Motor exam (neuro): 5/5 motor strength present throughout Sensory Exam: No Sensory deficit (Neuro) Deep tendon reflexes (DTR's): Right patellar reflex intensity grade: 2+ and Left patellar reflex intensity grade: 2+ Extrem General: Yes normal to inspection, No edema and No calf tenderness Psych Appearance: grossly normal Affect: normal affect Attitude: cooperative Thought process: Normal thought process present Assessment and Plan Assessment & Plan (1) Normal physical examination, routine: Code(s): Z00.00 - Encounter for general adult medical examination without abnormal findings Plan: No significant physical restrictions or limitations Advised to get fasting blood work done before his next visit Follow-up in 1 month for asthma Return sooner with worsening or new symptoms Verbalized understanding and agreed with treatment plan. (2) Asthma: Code(s): J45.909 - Unspecified asthma, uncomplicated Plan: ACT score is 11, indicates poorly controlled asthma Symbicort ordered. Use as prescribed Continue to use Ventolin inhaler as prescribed Follow-up in 1 month or return sooner with worsening or new symptoms Verbalized understanding and agreed with treatment plan. (3) Right shoulder pain: Code(s): M25.511 - Pain in right shoulder Plan: He reports intermittent right shoulder and right lateral knee pain for the past few months. He notes that the knee pain intensifies with prolonged walking. He is not taking any medication for pain. Likely arthritis May take Tylenol ibuprofen for pain or discomfort Warm/cold compresses encouraged Follow-up with worsening or new symptoms Verbalized understanding and agreed with treatment plan. (4) Right knee pain: Code(s): M25.561 - Pain in right knee Plan: As above Medications: New budesonide-formoterol 80-4.5 mcg/actuation (Symbicort) 2 puffs inhalation BID 10.2 grams 3RF Coding Level of Care Code Est Pt Prev Care 18-39y(70827) Diagnoses Normal physical examination, routine Z00.00 Asthma J45.909 Right shoulder pain M25.511 Right knee pain M25.561
[2023-05-06 10:59] VITALS: BP 130/78; PULSE 74; RESP 12; TEMP 36.6; O2SAT 98; BMI 37.0
== END 2023-05-06 11:45 | disposition home or self-care (01) ==
PROVIDERS: PCP Nurse Practitioner Family; Visit Provider Nurse Practitioner Family
DX: Z00.00 Encounter for general adult medical examination without abnormal findings (principal); J45.909 Unspecified asthma, uncomplicated; M25.511 Pain in right shoulder; M25.561 Pain in right knee
CPT/HCPCS: 99395

== ENCOUNTER 2024-05-19 15:57 | Outpatient (AMB) | payer OTHER, SELFPAY ==
--- NOTE | 2024-05-19 16:00 | A.OFFPC_ITS ---
Vital Signs 05/19/24 16:07 Height 5 ft 9 in Weight 228 lb 6 oz BMI 33.7 BP 118/60 Blood Pressure Location Rt brachial Position Sitting Respiration 16 Pulse 72 Pulse Source Pulse Oximeter Temp 97.3 F Temp Source Oral Pulse Oximetry (%) 98 Oxygen Delivery Method Room Air Intake Visit Reasons: f/u asthma Intake Note: patient here to follow up on his asthma. Patient Safety Manager Required: No Allergies sulfamethoxazole [From BACTRIM] Allergy (Severe, Verified 05/19/24 16:22) HIVES Iodinated Contrast Media Adverse Reaction (Verified 05/19/24 16:22) Agitated Medication List - Last Reconciled 05/19/24 by Christine Nieto CNP albuterol sulfate 90 mcg/actuation (Ventolin HFA) 2 puffs inhalation Q4-6H PRN budesonide-formoterol 80-4.5 mcg/actuation (Symbicort) 2 puffs inhalation BID Tobacco use date assessed: 05/19/24 Dental Screening Dental Screen Date: 05/19/24 Did you have a dental visit in the last 12 months?: No Did you have a dental problem in the last 6 months where you did not have access to dental care?: No Was dental information given to patient?: Patient has dentist HPI HPI Comments History of Present Illness Details 28-year-old male presents for asthma fol low-up He notes that he took his inhalers with controlled of his asthma symptoms. He ran out of Symbicort about 2 months ago and his rescue inhaler 2 days ago. He reports asthma exacerbation related to the warm weather, especially at night. He notes that he smokes cannabis, 1 joint/1 g nightly, and has been smoking for several years No acute symptoms at this time [facility] Medical History Asthma No known health problems Surgical History No pertinent past surgical history Family History Mother Diabetes Obstructive sleep apnea Bipolar 1 disorder Depressed Maternal Grandmother Obstructive sleep apnea Hypertension Maternal Uncle Hypertension Cardiovascular disease Social History Housing: Apartment Patient Tobacco Use Status: Former Tobacco user Cigarettes Per Day: 20 Years Smoked: 16 e-Cigarette/Vaping Use: Never Used service: No Current occupational status: unemployed Cognitive needs: No Hearing needs: Yes Vision needs: No Questionnaire Thrive Questionnaire Date Thrive assessed: 11/16/22 GABRIELA-7 AMB Questionnaire GABRIELA-7 Date GABRIELA - 7 assessed: 11/16/22 Source: Developed by Drs. Harshil Glover, Thalia Barger, Jimbo Oconnor and colleagues, with an educational alexis from [employer]. ACT Questionnaire In the past 4 weeks, how much of the time did your asthma keep you from getting as much done at work, school or at home?: A little of the time During the past 4 weeks, how often have you had shortness of breath?: 1-2 times a week During the past 4 weeks, how often did your asthma symptoms wake you up at night or earlier than usual in the morning?: Once or twice per week During the past 4 weeks, how often have you had to use your rescue inhaler or nebulizer medication?: 1-2 times a week How would you rate your asthma control during the past 4 weeks?: Poorly controlled ACT Interpretation: Positive Score: 16 Review of Systems Const Details: Const Denies chills, Denies fatigue, Denies fever(s), Denies headache(s) and Denies weakness ENT Denies dizziness and Denies headache(s) Card Denies chest pain, Denies lightheadedness, Denies dyspnea and Denies other (Palpitations) Resp Denies cough, Denies dyspnea, Denies wheezing and Denies other ( shortness of breath) GI Denies abdominal pain, Denies melena, Denies hematochezia, Denies change in bowel habits, Denies dyspepsia and Denies nausea Denies hematuria and Denies dysuria Musc Denies abnormal gait, Denies myalgias, Denies arthralgias, Denies numbness and Denies tingling Skin/Breast Denies rash, Denies unusual bruising and Denies wounds Neuro Denies abnormal gait, Denies dizziness, Denies headache(s), Denies memory loss, Denies numbness, Denies Sensory deficit (Neuro), Denies tingling and Denies weakness Psych Denies anxiety, Denies depression, Denies memory loss Endo Denies cold intolerance, Denies fatigue, Denies heat intolerance, Denies polydipsia and Denies polyuria Aller/Immun Denies wheezing Physical exam (Primary Care) Vital Signs: Last Vital Signs Temp 97.3 F 05/19/24 16:07 Pulse 72 05/19/24 16:07 Resp 16 05/19/24 16:07 BP 118/60 05/19/24 16:07 Pulse Ox 98 05/19/24 16:07 Oxygen Delivery Method Room Air 05/19/24 16:07 BMI result Body Mass Index 33.7 Tobacco/Smoking Status: Tobacco use Status Tobacco use date assessed 05/19/24 05/19/24 16:08 Patient Tobacco Use Status Former Tobacco user 05/19/24 16:01 e-Cigarette/Vaping Use Never Used 05/19/24 16:01 Thrive Assessment: Date of Thrive Assessment Date Thrive assessed 11/16/22 05/19/24 16:01 Const Other: General: no acute distress and well developed Nutritional Appearance: well nourished Orientation/consciousness: patient oriented x3 HENMT Head: Yes normocephalic and Yes atraumatic Eyes General: appearance normal, both eyes and all related structures Pupils: Equal, round and reactive pupils present EOM: EOMs intact bilaterally Resp Effort & Inspection: normal respiratory effort Auscultation: clear to auscultation bilaterally Cardio Rate: regular rate Rhythm: regular rhythm Heart sounds: S1 normal heart sound present, S2 normal heart sound present, no gallops, no murmurs and no rubs GI Palpation (GI): No Abdominal aortic bruit present, Soft to palpation, nontender, No hepatosplenomegaly present and No Rebound tenderness present Auscultation: normal bowel sounds General: Yes no CVA tenderness Back/Spine/Pelvis Back: no CVA tenderness Cervical Spine: cervical ROM normal and No Cervical spine tenderness Thoracic/Lumbar Spine: thoraco-lumbar ROM normal, No pain with thoraco-lumbar ROM, No thoracic spinal tenderness and No lumbar spinal tenderness Extrem General: Yes normal to inspection, No edema and No calf tenderness Skin General: warm and dry. Normal skin color. Normal skin turgor Lesions: no lesions Neuro General: patient oriented x3, gait normal and no focal neuro deficit Cranial nerves: Yes Equal, round and reactive pupils present Cognition (Neuro): normal cognition Gait exam (Neuro): Normal gait present Sensory Exam: No Sensory deficit (Neuro) Psych Appearance: grossly normal Affect: normal affect Attitude: cooperative Thought process: Normal thought process present Assessment and Plan Assessment & Plan (1) Asthma: Code(s): J45.909 - Unspecified asthma, uncomplicated Plan: Reports poorly control asthma. He has been out of Symbicort for about 2 months and Ventolin for the past 2 days ACT score is 16, partially control asthma Ventolin and Symbicort refilsl sent. Advised to use as prescribed Informed that smoking cannabis may irritate his lungs and exacerbate his asthma. Encouraged to avoid smoking cannabis Advised to get lab worked done before his next visit Follow-up in 1 month for an extended physical exam or sooner with symptoms or concerns Verbalized understanding and agreed with the treatment plan (2) Laboratory tests ordered as part of a complete physical exam (CPE): Code(s): Z00.00 - Encounter for general adult medical examination without abnormal findings Plan: Fasting labs ordered in preparation of a complete physical exam. Advised to fast for at least 10 hours before getting labs drawn. May drink water Verbalized understanding and agreed with treatment plan. Orders: Orders 2 Complete Blood Count Auto Diff Today Z00.00 - Encounter for general adult medical examination without abnormal findings Comprehensive Krebs. Panel Fast Today Z00.00 - Encounter for general adult medical examination without abnormal findings Lipid Panel Today Z00.00 - Encounter for general adult medical examination wit hout abnormal findings TSH reflex Free T4 Today Z00.00 - Encounter for general adult medical examination without abnormal findings UA CC w/rflx Micro + Cult Today Z00.00 - Encounter for general adult medical examination without abnormal findings Medications: Refilled budesonide-formoterol 80-4.5 mcg/actuation (Symbicort) 2 puffs inhalation BID 10.2 grams 4RF albuterol sulfate 90 mcg/actuation (Ventolin HFA) 2 puffs inhalation Q4-6H PRN 8.5 grams 4RF shortness of breath or wheezing Coding Level of Care Code Est Pt Level 4 (68162) Diagnoses Asthma J45.909 Laboratory tests ordered as part of a complete physical exam (CPE) Z00.00
[2024-05-19 16:07] VITALS: BP 118/60; PULSE 72; RESP 16; TEMP 36.3; O2SAT 98; BMI 33.7
== END 2024-05-19 16:33 | disposition home or self-care (01) ==
PROVIDERS: PCP Nurse Practitioner Family; Visit Provider Nurse Practitioner Family
DX: J45.909 Unspecified asthma, uncomplicated (principal)
CPT/HCPCS: 99214

== ENCOUNTER 2024-06-21 09:12 | Outpatient (AMB) | payer OTHER, SELFPAY ==
--- NOTE | 2024-06-21 09:30 | MHC.PC.OV ---
Vital Signs 06/21/24 09:34 Height 5 ft 9 in Weight 228 lb 2 oz BMI 33.7 BP 122/60 Blood Pressure Location Rt brachial Position Sitting Respiration 16 Pulse 58 Pulse Source Pulse Oximeter Temp 97.8 F Temp Source Oral Pulse Oximetry (%) 98 Oxygen Delivery Method Room Air Intake Visit Reasons: cpe Intake Note: patient here for CPE Alarm Mechanic Required: No Allergies sulfamethoxazole [From BACTRIM] Allergy (Severe, Verified 06/21/24 09:49) HIVES Iodinated Contrast Media Adverse Reaction (Verified 06/21/24 09:49) Agitated Medication List - Last Reconciled 06/21/24 by Christine Nieto CNP albuterol sulfate 90 mcg/actuation (Ventolin HFA) 2 puffs inhalation Q4-6H PRN budesonide-formoterol 80-4.5 mcg/actuation (Symbicort) 2 puffs inhalation BID Tobacco use date assessed: 06/21/24 Dental Screening Dental Screen Date: 06/21/24 Did you have a dental visit in the last 12 months?: No Did you have a dental problem in the last 6 months where you did not have access to dental care?: No Was dental information given to patient?: No HPI HPI Comments History of Present Illness Details 28-year-old male presents for an extended physical exam He has past medical history significant for asthma He admits to taking his medications without adverse reactions. He takes Symbicort twice daily. He rarely uses his rescue inhaler He notes that he sustained a cut above his left knee after it was stuck by a moving wagon about 2 weeks ago. He denies pain, redness, or swelling to the area Former smoker. Drinks 2-3 beers/mixed drinks monthly. Smokes cannabis, 1 joint/1 g nightly, and has been smoking for several years Eye exam was several years ago Last tetanus vaccine unknown He has not been vaccinated for the flu this season and declined the vaccine [facility], [facility] Medical History Asthma No known health problems Surgical History No pertinent past surgical history Family History (Updated 06/21/24 @ 09:34 by Tata Nelson MA) Mother Diabetes Obstructive sleep apnea Bipolar 1 disorder Depressed FH: mental illness Maternal Grandmother Obstructive sleep apnea Hypertension Maternal Uncle Hypertension Cardiovascular disease Maternal Uncle Substance abuse Social History Housing: Apartment Patient Tobacco Use Status: Former Tobacco user Cigarettes Per Day: 20 Years Smoked: 16 e-Cigarette/Vaping Use: Never Used service: No Current occupational status: unemployed Cognitive needs: No Hearing needs: Yes Vision needs: No Questionnaire PHQ-9 Over the last 2 weeks, how often have you been bothered by any of the following problems? 1. Little interest or pleasure in doing things: not at all 2. Feeling down, depressed, or hopeless: not at all 3. Trouble falling or staying asleep, or sleeping too much: nearly every day 4. Feeling tired or having little energy: several days 5. Poor appetite or overeating: several days 6. Feeling bad about yourself - or that you are a failure or have let yourself or your family down: not at all 7. Trouble concentrating on things, such as reading the newspaper or watching television: not at all 8. Moving or speaking so slowly that other people could have noticed. Or the opposite - being so fidgety or restless that you have been moving around a lot more than usual: not at all 9. Thoughts that you would be better off or of hurting yourself in some way: not at all Total score: 5 [id number] - PHQ-9 Billing: Yes Source: Developed by Drs. Harshil Glover, Thalia Barger, Jimbo Oconnor and colleagues, with an educational alexis from [employer]. Thrive Questionnaire Date Thrive assessed: 06/21/24 I am a: Patient What is your living situation today?: I have a steady place to live Within the past 12 months, did the food you bought not last and you didn't have the money to get more?: Never true Within the past 12 months, did you worry whether your food would run out before you got money to buy more?: Never true Do you have trouble paying for medicines?: No Do you have trouble getting transportation to medical appointments?: No Do you have trouble paying your heating and electricity bill?: No Do you have trouble taking care of your child, family member or friend?: No Do you have trouble with day-to-day activities such as bathing, preparing meals, shopping, managing finances, etc.?: No Are you interested in more education?: No Please select the resources that you would like help with: None Currently or been in a relationship where the following occur: No concerns reported THRIVE Score: 0 AUDIT C Alcohol Use Questionnaire (AUDIT-C) 1. How often do you have a drink containing alcohol?: Monthly or less 2. How many drinks containing alcohol do you have on a typical day when you are drinking?: 1 or 2 3. How often do you have six or more drinks on one occasion?: Never Total Score: 1 Score Reviewed/Action Taken: Yes GABRIELA-7 AMB Questionnaire GABRIELA-7 Date GABRIELA - 7 assessed: 06/21/24 Feeling nervous, anxious, or on edge: 0 = Not at all Not being able to stop or control worryin = Not at all Worrying too much about different things: 0 = Not at all Trouble relaxin = Not at all Being so restless that it is hard to sit still: 0 = Not at all Becoming easily annoyed or irritable: 0 = Not at all Feeling afraid as if something awful might happen: 0 = Not at all Total GABRIELA-7 score (0-4 normal; 5-9 mild; 10-14 moderate; 15-21 severe): 0 Source: Developed by Drs. Harshil Glover, Thalia Barger, Jimbo Oconnor and colleagues, with an educational alexis from [employer]. GABRIELA-7 Assessment Billing GABRIELA-7 Assessment Tool: GABRIELA-7 Assessment 84537 ACT Questionnaire In the past 4 weeks, how much of the time did your asthma keep you from getting as much done at work, school or at home?: Most of the time During the past 4 weeks, how often have you had shortness of breath?: 3-6 times a week During the past 4 weeks, how often did your asthma symptoms wake you up at night or earlier than usual in the morning?: 2-3 nights a week During the past 4 weeks, how often have you had to use your rescue inhaler or nebulizer medication?: 1-2 times a week How would you rate your asthma control during the past 4 weeks?: Not controlled at all ACT Interpretation: Positive Score: 10 Review of Systems Const Details: Denies chills, Denies fatigue, Denies fever(s), Denies headache(s) and Denies weakness HEENT Denies change in vision, Denies dizziness, Denies headache(s), Denies hearing loss, Denies nasal congestion, Denies sinus pain, Denies sinus pressure and Denies sore throat Card Denies chest pain, Denies lightheadedness, Denies dyspnea and Denies other (palpitations) Resp Denies cough, Denies dyspnea and Denies wheezing GI Denies abdominal pain, Denies melena, Denies hematochezia, Denies change in bowel habits, Denies dyspepsia and Denies nausea Denies hematuria and Denies dysuria Musc Denies abnormal gait, Denies myalgias, Denies arthralgias, Denies numbness and Denies tingling Skin/Breast Denies rash, Denies unusual bruising and Denies wounds Neuro Denies abnormal gait, Denies dizziness, Denies headache(s), Denies memory loss, Denies numbness, Denies Sensory deficit (Neuro), Denies tingling and Denies weakness Psych Denies anxiety, Denies depression and Denies memory loss Endo Denies cold intolerance, Denies fatigue, Denies heat intolerance, Denies polydipsia and Denies polyuria Joss/Lymph Denies easy bleeding and Denies easy bruising Aller/Immun Denies wheezing Physical exam (Primary Care) Vital Signs: Last Vital Signs Temp 97.8 F 06/21/24 09:34 Pulse 58 06/21/24 09:34 Resp 16 06/21/24 09:34 BP 122/60 06/21/24 09:34 Pulse Ox 98 06/21/24 09:34 Oxygen Delivery Method Room Air 06/21/24 09:34 BMI result Body Mass Index 33.7 Tobacco/Smoking Status: Tobacco use Status Tobacco use date assessed 06/21/24 06/21/24 09:41 Patient Tobacco Use Status Former Tobacco user 06/21/24 09:41 e-Cigarette/Vaping Use Never Used 06/21/24 09:41 PHQ-9: PHQ-9 Score PHQ-9: Total score 5 06/21/24 09:51 Thrive Assessment: Date of Thrive Assessment Date Thrive assessed 06/21/24 06/21/24 09:41 Currently or been in a relationship where the following occur: No concerns reported Const Other: General: no acute distress, well developed, alert and awake Nutritional Appearance: well nourished Orientation/consciousness: patient oriented x3 [facility] Head: Yes normocephalic and Yes atraumatic Ears: hearing grossly normal bilaterally and TM's normal bilaterally General nose exam: Normal external nose present and Normal nares present Mouth: Normal oral and palatal mucosa present and moist mucous membranes Teeth and gingiva: dentition normal Throat: Yes oropharynx normal Eyes Pupils: Equal, round and reactive pupils present and Pupil accommodation reflex normal EOM: EOMs intact bilaterally Neck Neck: Yes normal visual inspection, Yes no lymphadenopathy and Yes trachea midline Thyroid: Thyroid normal Carotids: no bruits Lymphatic: no lymphadenopathy noted Chest Chest palpation & inspection: normal inspection of the chest Resp Effort & Inspection: normal respiratory effort Auscultation: clear to auscultation bilaterally Cardio Rate: regular rate Rhythm: regular rhythm Heart sounds: S1 normal heart sound present, S2 normal heart sound present, no gallops, no murmurs and no rubs Bruits: no abdominal aortic bruits and no carotid bruits GI Palpation (GI): No Abdominal aortic bruit present, Soft to palpation, nontender, No hepatosplenomegaly present and No Rebound tenderness present Auscultation: normal bowel sounds General: Yes no CVA tenderness Back/Spine/Pelvis Back: no CVA tenderness Cervical Spine: cervical ROM normal and No Cervical spine tenderness Thoracic/Lumbar Spine: thoraco-lumbar ROM normal, No pain with thoraco-lumbar ROM, No thoracic spinal tenderness and No lumbar spinal tenderness Skin General: warm and dry. Normal skin color. Normal skin turgor Lesions: Approximately 1 in superficial skin tear with healthy scab noted above his left knee. Rashes: no rashes Trauma: no lacerations or abrasions Wounds: no wounds Nails: normal Neuro General: patient oriented x3, gait normal and CN's II-XI intact bilaterally Cranial nerves: Yes Equal, round and reactive pupils present Cognition (Neuro): normal cognition Gait exam (Neuro): Normal gait present Motor exam (neuro): 5/5 motor strength present throughout Sensory Exam: No Sensory deficit (Neuro) Deep tendon reflexes (DTR's): Right patellar reflex intensity grade: 2+ and Left patellar reflex intensity grade: 2+ Extrem General: Yes normal to inspection, No edema and No calf tenderness Psych Appearance: grossly normal Affect: normal affect Attitude: cooperative Thought process: Normal thought process present Immunizations Boostrix Tdap 2.5 Lf unit-8 mcg-5 Lf/0.5 mL intramuscular syringe Performing Provider: Christine Nieto CNP Performing Location: [facility] Administered by: Jazzy Clarke RN on 06/21/24 10:17 Dose Route Admin Location Dispensed Lot Number Expiration Date [facility] Senior Contract Specialist 0.5 mL IM Right Deltoid 0.5 mL [id number] 06/10/25 [id number] [employer] VIS Given Date VIS Provided VIS Publication Date 06/21/24 Single Vaccine 21 Eligibility Eligibility Date Funding Source Not [facility] Eligible 06/21/24 Private Coding Level of Care Code Est Pt Level 3 (23790) Est Pt Prev Care 18-39y(87183) Diagnoses Normal physical examination, routine Z00.00 Noninfected skin tear of left leg S81.812A Asthma J45.909 Eye exam, routine Z01.00 Additional Codes GABRIELA-7 Assessment Billing - GABRIELA-7 Assessment Tool: GABRIELA-7 Assessment 88040 ([id number]) Asthma Control Questionnaire - ACT Interpretation: Positive ([id number]) Assessment & Plan Assessment & Plan (1) Normal physical examination, routine: Code(s): Z00.00 - Encounter for general adult medical examination without abnormal findings Category: Medical Plan: No significant physical restrictions or limitations noted Continue current treatment regimen Healthy diet and routine exercise encouraged He had lab work done today. Will review results and contact him with changes or plan Verbalized understanding and agreed with the plan (2) Noninfected skin tear of left leg: Code(s): S81.812A - Laceration without foreign body, left lower leg, initial encounter Category: Medical Plan: His left anterior thigh, proximal to the knee was struck by a wagon about 2 weeks ago. Approximately 1 in superficial skin tear with healthy scab noted above his left knee. No overt signs of infection or injury. His tetanus vaccine status is unknown. Tetanus vaccine was administered today by our nurse. Advised to follow-up with symptoms or concerns. Verbalized understanding and agreed with the plan (3) Asthma: Code(s): J45.909 - Unspecified asthma, uncomplicated Category: Medical Plan: ACT score is 10, poorly control asthma He takes Symbicort twice daily. He rarely uses his rescue inhaler despite frequent asthma symptoms Encouraged to use albuterol inhaler as prescribed, immediately before inhaler and Symbicort, twice daily Referred to [facility] pulmonology Follow-up with worsening or new symptoms Verbalized understanding and agreed with the plan (4) Eye exam, routine: Code(s): Z01.00 - Encounter for examination of eyes and vision without abnormal findings Category: Medical Plan: His last eye exam was several years ago Referred to Ophthalmology for routine eye exam Orders: Referrals Ophthalmology Referral Z01.00 - Encounter for examination of eyes and vision without abnormal findings Pulmonology Referral J45.909 - Unspecified asthma, uncomplicated
[2024-06-21 09:34] VITALS: BP 122/60; PULSE 58; RESP 16; TEMP 36.6; O2SAT 98; BMI 33.7
== END 2024-06-21 10:15 | disposition home or self-care (01) ==
PROVIDERS: PCP Nurse Practitioner Family; Visit Provider Nurse Practitioner Family
DX: Z00.00 Encounter for general adult medical examination without abnormal findings (principal); S81.812A Laceration without foreign body, left lower leg, initial encounter; J45.909 Unspecified asthma, uncomplicated

== ENCOUNTER → 2024-06-21 09:12 | Outpatient (BNVA) | payer OTHER, SELFPAY | PROVIDERS: PCP Nurse Practitioner Family; Visit Provider Nurse Practitioner Family ==

== ENCOUNTER 2024-06-21 09:15 | Outpatient (REF) | payer OTHER, SELFPAY ==
[2024-06-21 11:38] LABS: Appearance Urine Clear; Color Urine Yellow; Glucose Urine UA Negative (Negative); Leukocyte Esterase Urine Negative (Negative); Nitrite Urine Negative (Negative); PH 6.5 (5.0-9.0); Urine Blood Negative (Negative); Urine Ketones Negative (Negative); Urine Protein Negative (Neg-Trace)
[2024-06-21 11:42] LABS: MANUAL DIFF FLAG NO
[2024-06-21 11:54] LABS: Basophils Absolute Auto 0.1 X10*3/uL (0.0-0.2); Basophils Percent Auto 0.9 % (0-2); Eosinophils Absolute Auto 0.2 X10*3/uL (0.0-0.4); Eosinophils Percent Auto 2.7 % (0-4); Hematocrit 45.6 % (42.0-52.0); Hemoglobin 15.1 g/dl (14.0-18.0); Imm Gran Abs Auto 0.01 X10*3/uL (0.00-0.03); Imm Gran Pct Auto 0.2 % (0.0-0.4); Lymphocytes Absolute Auto 1.6 X10*3/uL (1.2-4.9); Lymphocytes Percent Auto 24.9 % (20-40); Mean Corpuscular HGB Conc 33.1 g/dl (31.0-36.0); Mean Corpuscular Hemoglobin 29.9 pg (27.0-33.0); Mean Corpuscular Volume 90.3 fL (80.0-98.0); Mean Platelet Volume 11.3 fL (9.4-12.4); Monocytes Absolute Auto 0.5 X10*3/uL (0.1-1.2); Monocytes Percent Auto 7.1 % (2-11); Neutrophils Absolute Auto 4.2 x10*3/uL (2.0-8.3); Neutrophils Percent Auto 64.2 % (45-73); Platelet Count 195 X10*3/uL (160-400); Red Blood Count 5.05 X10*6/uL (4.60-5.80); Red Cell Distribution Width 12.5 % (11.0-16.0); White Blood Count 6.6 X10*3/uL (4.8-10.8)
[2024-06-21 12:13] LABS: Alanine Aminotransferase 24 U/L (0-40); Albumin Level 4.3 g/dL (3.5-5.0); Alkaline Phosphatase 63 U/L (39-117); Anion Gap 9 (12-20); Aspartate Amino Transferase 19 U/L (5-37); Bilirubin Total 0.6 mg/dL (0.0-1.0); Blood Urea Nitrogen 12 mg/dL (9-16); Calcium 9.5 mg/dL (8.4-10.2); Carbon Dioxide 28 mmol/L (22-29); Chloride 107 mmol/L (96-108); Cholesterol 175 mg/dL (<200); Estimated Glomerular Filt Rate > 60; Glucose Fasting 95 mg/dL (60-99); HDL Cholesterol 58 mg/dL (>40); LDL Cholesterol Calculated 97 mg/dL (<100); Potassium 4.4 mmol/L (3.3-5.1); Sodium 140 mmol/L (135-145); Total Protein 7.5 g/dL (6.5-8.0); Triglycerides 102 mg/dL (<150)
[2024-06-21 12:37] LABS: TSH reflex Free T4 1.08 uIU/mL (0.32-4.0)
== END 2024-06-21 09:16 | disposition home or self-care (01) ==
LOC: HO.WFDLDS 09:15
PROVIDERS: Visit Provider Nurse Practitioner Family
DX: Z00.00 Encounter for general adult medical examination without abnormal findings (principal); S81.812A Laceration without foreign body, left lower leg, initial encounter; J45.909 Unspecified asthma, uncomplicated; Z01.00 Encounter for examination of eyes and vision without abnormal findings
CPT/HCPCS: 36415; 80053; 80061; 81003; 84443; 85025; 90471; 90715; 96127; 96160; 99212; 99395

== ENCOUNTER 2024-08-01 10:49 | Outpatient (AMB) | payer OTHER, SELFPAY ==
[2024-08-01 10:53] VITALS: BP 108/60; PULSE 92; O2SAT 97; BMI 34.7
--- NOTE | 2024-08-01 10:53 | MHC.OFFVIS ---
Vital Signs 08/01/24 10:53 Height 5 ft 9 in Weight 235 lb BMI 34.7 BP 108/60 Blood Pressure Location Rt brachial Position Sitting Pulse 92 Pulse Source Doppler Pulse Oximetry (%) 97 Oxygen Delivery Method Room Air Intake Visit Reasons: asthma Allergies sulfamethoxazole [From BACTRIM] Allergy (Severe, Verified 06/21/24 09:49) HIVES Iodinated Contrast Media Adverse Reaction (Verified 06/21/24 09:49) Agitated HPI HPI asthma: Details: 29-year-old gentleman, former less than 10 pack-year smoker, quit 2021 with underlying history of asthma since childhood, previously controlled on albuterol MDI/nebs, recently with worsening control on Symbicort and albuterol MDI, including nocturnal symptoms. Though, patient denies an acute exacerbation. Also, provoking factors include exercise-induced and called air. Patient denies family history of lung disease except lung cancer grandmother who was an avid smoker. [facility] Medical History Asthma No known health problems Surgical History No pertinent past surgical history Family History (Updated 06/21/24 @ 09:34 by Tata Nelson MA) Mother Diabetes Obstructive sleep apnea Bipolar 1 disorder Depressed FH: mental illness Maternal Grandmother Obstructive sleep apnea Hypertension Maternal Uncle Hypertension Cardiovascular disease Maternal Uncle Substance abuse Social History Housing: Apartment Patient Tobacco Use Status: Former Tobacco user Cigarettes Per Day: 20 Years Smoked: 16 e-Cigarette/Vaping Use: Never Used service: No Current occupational status: unemployed Cognitive needs: No Hearing needs: Yes Vision needs: No Review of Systems Const Denies daytime sleepiness, Denies excessive sweating, Denies fatigue, Denies fever(s), Denies lethargy, Denies malaise, Denies night sweats, Denies snoring and Denies weight loss Eyes Denies blurry vision and Denies itchy eyes ENT Denies nasal congestion, Denies post nasal drip, Denies sinus pain, Denies sinus pressure and Denies other ( Thrush) Card Denies chest pain, Denies pedal edema, Denies dyspnea, Denies orthopnea and Denies paroxysmal nocturnal dyspnea Resp Denies cough, Denies hemoptysis, Denies excessive phlegm production, Denies dyspnea, Denies snoring and Reports wheezing GI Denies abdominal pain and Denies heartburn Musc Denies myalgias, Denies arthralgias and Denies joint swelling Skin/Breast Denies rash Neuro Denies memory loss and Denies seizure-like activity Psych Denies abnormal sleep pattern, Denies anxiety and Denies memory loss Endo Denies excessive sweating, Denies fatigue and Denies heat intolerance Joss/Lymph Denies easy bruising Aller/Immun Denies itchy eyes, Denies seasonal rhinorrhea and Reports wheezing Physical Exam Vital Signs: Last Vital Signs Pulse 92 08/01/24 10:53 BP 108/60 08/01/24 10:53 Pulse Ox 97 08/01/24 10:53 Oxygen Delivery Method Room Air 08/01/24 10:53 BMI result Body Mass Index 34.7 Const General: no acute distress and alert Nutritional Appearance: not obese Orientation/consciousness: Other orientation findings ( oriented) HEENT Head: Yes atraumatic Eyes General: appearance normal, both eyes and all related structures Sclerae: sclerae normal EOM: EOMs intact bilaterally Neck Neck: Yes supple Lymphatic: no lymphadenopathy noted Resp Effort & Inspection: normal respiratory effort and no use of accessory muscles Auscultation: clear to auscultation bilaterally Cardio Rate: regular rate Rhythm: regular rhythm Heart sounds: no gallops, no murmurs and no rubs Skin General skin exam: other ( warm) Extrem General: No clubbing, No cyanosis and No edema Assessment & Plan Assessment & Plan (1) Asthma: Code(s): J45.909 - Unspecified asthma, uncomplicated Category: Medical Plan: Inhaler technique chest and adjusted. Underlying severe persistent asthma suboptimally controlled on Symbicort and albuterol MDI. Will obtain full PFT. Will evaluate for immunologic therapy. Will add duo nebs. (2) Environmental allergies: Code(s): Z91.09 - Other allergy status, other than to drugs and biological substances Category: Medical Plan: Will obtain IgE level, CBC with differential, and RAST panel for further evaluation. Orders: Orders Resp Allergy Profile Region I Today J45.909 - Unspecified asthma, uncomplicated Complete Blood Count Auto Diff Today J45.909 - Unspecified asthma, uncomplicated PFT pulmonary function test Today J45.909 - Unspecified asthma, uncomplicated Medications: New ipratropium-albuterol 0.5 mg-3 mg(2.5 mg base)/3 mL 3 mL inhalation Q4-6H PRN 180 mL 6RF wheezing J45.909 - Unspecified asthma, uncomplicated Coding Level of Care Code New Pt Level 4 (53131) Diagnoses Asthma J45.909 Environmental allergies Z91.09
== END 2024-08-01 11:18 | disposition home or self-care (01) ==
PROVIDERS: PCP Nurse Practitioner Family; Visit Provider Internal Medicine Pulmonary Disease
DX: J45.909 Unspecified asthma, uncomplicated (principal); Z91.09 Other allergy status, other than to drugs and biological substances
CPT/HCPCS: 99204

== ENCOUNTER → 2024-08-01 10:49 | Outpatient (BNVA) | payer OTHER, SELFPAY | PROVIDERS: PCP Nurse Practitioner Family; Visit Provider Internal Medicine Pulmonary Disease | DX: J45.909 Unspecified asthma, uncomplicated (principal); Z91.09 Other allergy status, other than to drugs and biological substances | CPT/HCPCS: 99202 ==